=== PATIENT | female | born 1980 | race African-American/Black ===

== ENCOUNTER 2016-02-25 07:50 | Inpatient (IN) | payer MEDICAID ==
[~2016-02-25] VITALS: Ht 180.3 cm; Wt 143.2 kg
[2016-02-25] VITALS (8 sets, daily range): BP systolic 112–139; BP diastolic 53–85; PULSE 78–96; RESP 17–20; TEMP 97.4–98.2; O2SAT 97–100
[~2016-02-25 07:50] MED LIST: CORTIS10A EACH EAR
--- NOTE | 2016-02-25 08:15 | PD ---
HPI Chief Complaint: Abdominal Pain Time Seen by Provider: 08:07 Travel History International Travel<30 days: No Contact w/Intl Traveler<30days: No Traveled to known affect area: No History of Present Illness HPI 35yo F with PMH of gallstones presents to the ED with c/o RUQ abdominal pain since waking up at 6:30am today. Pain is sharp, radiates from epigastric region to right upper abdomen. Feels like pain she has had before. +Nausea. Denies any fever, chest pain, sob, vomiting, urinary complaints, vaginal bleeding or discharge. PFSH Past Medical History Asthma: Yes Blood Disorders: No Heart Rhythm Problems: No Cancer: No Cardiovascular Problems: No High Cholesterol: No Chemotherapy: No Chest Pain: No Congestive Heart Failure: No COPD: No Diabetes: No Diminished Hearing: No Endocrine: No Gastrointestinal Disorders: No Genitourinary: No Hepatitis: No Hiatal Hernia: No Hypertension: No Immune Disorder: No Implanted Vascular Access Dvce: No Kidney Stones: Yes Musculoskeletal: No Neurologic: No Psychiatric: No Reproductive: No Respiratory: Yes (ASTHMA) Radiation Therapy: No Sleep Apnea: No Thyroid Disease: No Tetanus Vaccination: > 5 Years Influenza Vaccination: No ?: Not LMP: 02/22/16 : 6 Para: 4 : 3 Tubal Ligation: Yes Past Surgical History AICD: No Section: Yes (X3) Genitourinary Surgery: Yes (KIDNEY STONE SURGERY LITHOTRYPSY) Gynecologic Surgery: Yes (C SECT X 3) Joint Replacement: No Pacemaker: No Other Surgery: Yes (KIDNEY STONES REMOVED IN MAY WITH LITHOTROPSY) Social History Alcohol Use: Yes (OCCASIONALLY) Tobacco Use: Yes (1/2 PPD) Substance Use: No Allergies-Medications (Allergen,Severity, Reaction): Coded Allergies: No Known Allergies (Verified , 02/25/16) Reported Meds & Prescriptions Reported Meds & Active Scripts Active No Active Prescriptions or Reported Medications Review of Systems Except as stated in HPI: all other systems reviewed are Neg Physical Exam Narrative GENERAL: 35yo F in mild distress. SKIN: Warm and dry. HEAD: Atraumatic. Normocephalic. EYES: Pupils equal and round. No scleral icterus. No injection or drainage. CARDIOVASCULAR: Regular rate and rhythm. No murmur appreciated. RESPIRATORY: No accessory muscle use. Clear to auscultation. Breath sounds equal bilaterally. GASTROINTESTINAL: Abdomen soft, +TTP epigastric and RUQ. +Rowe's sign. No rebound tenderness or guarding. BACK: No CVA tenderness bilaterally. MUSCULOSKELETAL: No obvious deformities. No clubbing. No cyanosis. No edema. NEUROLOGICAL: Awake and alert. No obvious cranial nerve deficits. Motor grossly within normal limits. Normal speech. PSYCHIATRIC: Appropriate mood and affect; insight and judgment normal. Data Data Last Documented VS Vital Signs Date Time Temp Pulse Resp B/P Pulse Ox O2 Delivery O2 Flow Rate FiO2 02/25/16 10:00 78 19 130/74 97 Room Air 02/25/16 07:52 98.2 Orders Basic Metabolic Panel (Bmp) (02/25/16 08:11) Complete Blood Count With Diff (02/25/16 08:11) Lipase (02/25/16 08:11) Prothrombin Time / Inr (Pt) (02/25/16 08:11) Act Partial Throm Time (Ptt) (02/25/16 08:11) Urinalysis - C+S If Indicated (02/25/16 08:11) Us Abdomen Gallbladder (02/25/16 ) Iv Access Insert/Monitor (02/25/16 08:11) Oximetry (02/25/16 08:11) Sodium Chloride 0.9% Flush (Ns Flush) (02/25/16 08:15) Electrocardiogram (02/25/16 08:11) Ed Urine Pregnancytest Poc (02/25/16 08:11) Hepatic Functional Panel (02/25/16 08:11) Ecg Monitoring (02/25/16 08:11) Ketorolac Inj (Toradol Inj) (02/25/16 09:00) Ondansetron Inj (Zofran Inj) (02/25/16 09:00) Morphine Inj (Morphine Inj) (02/25/16 09:45) Consult General Surgery (02/25/16 ) NPO (02/25/16 09:37) Consult Gastroenterology (02/25/16 ) Mri Mrcp W & W/O Contrast (02/25/16 ) Admit Order (Ed Use Only) (02/25/16 09:59) Labs Laboratory Tests Test 02/25/16 02/25/16 08:25 09:38 White Blood Count 6.8 TH/MM3 Red Blood Count 5.66 MIL/MM3 Hemoglobin 13.9 GM/DL Hematocrit 43.9 % Mean Corpuscular Volume 77.6 FL Mean Corpuscular Hemoglobin 24.6 PG Mean Corpuscular Hemoglobin 31.7 % Concent Red Cell Distribution Width 14.4 % Platelet Count 202 TH/MM3 Mean Platelet Volume 9.7 FL Neutrophils (%) (Auto) 50.4 % Lymphocytes (%) (Auto) 37.8 % Monocytes (%) (Auto) 9.4 % Eosinophils (%) (Auto) 1.8 % Basophils (%) (Auto) 0.6 % Neutrophils # (Auto) 3.4 TH/MM3 Lymphocytes # (Auto) 2.6 TH/MM3 Monocytes # (Auto) 0.6 TH/MM3 Eosinophils # (Auto) 0.1 TH/MM3 Basophils # (Auto) 0.0 TH/MM3 CBC Comment AUTO DIFF Differential Comment AUTO DIFF CONFIRMED Prothrombin Time 10.6 SEC Prothromb Time International 1.0 RATIO Ratio Activated Partial 27.3 SEC Thromboplast Time Sodium Level 140 MEQ/L Potassium Level 3.7 MEQ/L Chloride Level 107 MEQ/L Carbon Dioxide Level 23.6 MEQ/L Anion Gap 9 MEQ/L Blood Urea Nitrogen 10 MG/DL Creatinine 1.03 MG/DL Estimat Glomerular Filtration 73 ML/MIN Rate Random Glucose 128 MG/DL Calcium Level 8.6 MG/DL Total Bilirubin 1.6 MG/DL Direct Bilirubin 1.1 MG/DL Indirect Bilirubin 0.5 MG/DL Aspartate Amino Transf 883 U/L (AST/SGOT) Alanine Aminotransferase 527 U/L (ALT/SGPT) Alkaline Phosphatase 201 U/L Total Protein 7.1 GM/DL Albumin 3.5 GM/DL Lipase 191 U/L Urine Color DARK-YELLOW Urine Turbidity HAZY Urine pH 6.0 Urine Specific [place] 1.025 Urine Protein 30 mg/dL Urine Glucose (UA) NEG mg/dL Urine Ketones NEG mg/dL Urine Occult Blood MOD Urine Nitrite POS Urine Bilirubin SMALL Urine Urobilinogen 4.0 MG/DL Urine Leukocyte Esterase MOD Urine RBC 12 /hpf Urine WBC 39 /hpf Urine Squamous Epithelial 18 /hpf Cells Urine Bacteria MANY /hpf Urine Mucus MANY /lpf Microscopic Urinalysis Comment CULTURE INDICATED MDM Medical Decision Making Medical Screen Exam Complete: Yes Emergency Medical Condition: Yes Interpretation(s) EKG: NSR 79bpm. Normal axis. No ST segment elevation or depression. Differential Diagnosis Acute cholecystitis vs. acute pancreatitis vs. gastritis Narrative Course 35yo F with RUQ pain today. Pt had positive rowe's sign. Labs reviewed, no leukocytosis. Elevated LFTs: AST 883, ALT 527, Alk phos 201, direct bili 1.1. US gallbladder showed cholelithiasis with mild gallbladder wall thickening. No evidence of biliary obstruction. I discussed case with general surgeon Dr. Fernandez who requests that I admit to medicine and consult GI as well. He will be consulted. I discussed with GI physician Dr. Sinha who asked me to order MRCP. I discussed with hospitalist Dr. Pierson and he accepted the patient to his service. Pt initially given toradol but no relieve of pain so morphine was given. UA showed positive nitrite, ceftriaxone given. Diagnosis Primary Impression: Acute cholecystitis Admitting Information Admitting Physician Requests: Admit Scripts No Active Prescriptions or Reported Meds Mela Chapin DO Feb 25, 2016 08:14
[2016-02-25 08:41] LABS: AUTOMATED NEUTROPHIL # 3.4 TH/MM3 (1.8-7.7); BASOPHIL % 0.6 % (0.0-2.0); EOSINOPHIL # 0.1 TH/MM3 (0-0.4); EOSINOPHIL % 1.8 % (0.0-4.0); HEMATOCRIT 43.9 % (35.0-46.0); LYMPH % 37.8 % (9.0-44.0); LYMPHOCYTE # 2.6 TH/MM3 (1.0-4.8); MEAN CELL VOLUME 77.6 FL (80.0-100.0); MEAN CORPUSCULAR HEMOGLOBIN 24.6 PG (27.0-34.0); MEAN CORPUSCULAR HGB CONC 31.7 % (32.0-36.0); MONO % 9.4 % (0.0-8.0); NEUT % 50.4 % (16.0-70.0); PLATELET COUNT 202 TH/MM3 (150-450); RED BLOOD COUNT 5.66 MIL/MM3 (4.00-5.30); RED CELL DISTRIBUTION WIDTH 14.4 % (11.6-17.2); WHITE BLOOD COUNT 6.8 TH/MM3 (4.0-11.0)
[2016-02-25 08:42] LABS: HEMO FLAGS AUTO DIFF
[2016-02-25 08:49] LABS: APTT (PATIENT) 27.3 SEC (24.3-30.1); PROTHROMBIN TIME - PATIENT 10.6 SEC (9.8-11.6)
[2016-02-25] MEDS ORDERED: ONDANSETRON HCL 4 MG/2 ML VIAL IV PUSH ONE (09:00)
[2016-02-25] MEDS ORDERED: KETOROLAC TROMETHAMINE 30 MG/ML (IVP) VIAL IV PUSH ONE (09:00)
[2016-02-25] MEDS: SODIUM CHLORIDE 0.9% FLUSH 5 ML FLUSH IVF PRN ×2 (09:10→09:41)
[2016-02-25 09:12] LABS: BICARBONATE 23.6 MEQ/L (21.0-32.0); INDIRECT BILIRUBIN 0.5 MG/DL (0.0-0.8); POTASSIUM 3.7 MEQ/L (3.5-5.1); TOTAL BILIRUBIN ADULT 1.6 MG/DL (0.2-1.0)
--- NOTE | 2016-02-25 09:12 | RADRPT ---
EXAM DATE/TIME: 02/25/2016 08:29 [facility] COMPARISON: No previous studies available for comparison. INDICATIONS : Right upper quadrant pain. Nausea and vomitting. MEDICAL HISTORY : Renal calculi. Asthma. UTI. Right upper quadrant pain. SURGICAL HISTORY : Tubal ligation. section. Lithotripsy. ENCOUNTER: Initial ACUITY: 1 day PAIN SCORE: 6/10 LOCATION: Right upper quadrant MEASUREMENTS: LIVER: 22.8 cm length COMMON DUCT: 4 mm RIGHT KIDNEY: 9.1 x 4.2 x 5.3 cm FINDINGS: LIVER: Normal echotexture without focal lesion or ductal dilatation. COMMON DUCT: No intraluminal mass or stone visualized. GALLBLADDER: Cholelithiasisis present with numerous echogenic gallstones with posterior with shadowing. The gallb ladder wall is mildly prominent at 3 mm with no pericholecystic fluid and negative sonographic Rowe 's sign. PANCREAS: The visualized portions are within normal limits. RIGHT KIDNEY: No evidence of hydronephrosis, stone, or mass. CONCLUSION: 1. Cholelithiasis with mild gallbladder wall thickening. 2. No evidence of biliary obstruction. Sid Gill MD on February 25, 2016 at 9:08 Board Certified Radiologist. This report was verified electronically.
[2016-02-25 09:26] LABS: SCAN/DIFF AUTO DIFF CONFIRMED
[2016-02-25] MEDS ORDERED: MORPHINE SULFATE 8 MG/ML INJ IV PUSH ONE (09:45)
[2016-02-25] MEDS ORDERED: GLUCAGON 1 MG/ML VIAL OTHER PRN (10:00)
[2016-02-25] MEDS ORDERED: NALOXONE HCL 0.4 MG/ML AMP IV PRN (10:00)
[2016-02-25] MEDS ORDERED: ONDANSETRON HCL 4 MG/2 ML VIAL IVP PRN (10:00)
[2016-02-25] MEDS: DOCUSATE SODIUM 100 MG CAP PO SCH ×2 (10:00→20:26)
[2016-02-25] MEDS ORDERED: SENNOSIDES 8.6 MG TAB PO PRN (10:00)
[2016-02-25] MEDS ORDERED: MAGNESIUM HYDROXIDE SUSP 30 ML CUP PO PRN (10:00)
[2016-02-25] MEDS ORDERED: BISACODYL 10 MG SUPP PR PRN (10:00)
[2016-02-25] MEDS ORDERED: DEXTROSE 50% IN WATER 50 ML VIAL(D50) IV PUSH PRN (10:00)
[2016-02-25] MEDS ORDERED: SODIUM CHLORIDE 0.9% FLUSH 5 ML FLUSH FLUSH PRN (10:00)
[2016-02-25] MEDS ORDERED: MORPHINE SULFATE 4 MG/ML INJ IV PRN ×3 (10:00→13:00)
[2016-02-25 10:02] LABS: BACTERIA, URINE MANY /hpf; BLOOD, URINE MOD (NEG); GLUCOSE,URINE NEG (NEG); KETONE, URINE NEG (NEG); MUCUS URINE MANY /lpf (OCC); SQUAMOUS EPITHELIAL CELL URINE 18 /hpf (0-5); URINE COLOR DARK-YELLOW (YELLW/STRAW)
[2016-02-25 10:03] LABS: NITRITE,URINE POS (NEG)
[2016-02-25 10:05] LABS: COMMENT (UR) CULTURE INDICATED; CULTURE IF INDICATED CULTURE INDICATED
--- NOTE | 2016-02-25 10:30 | PD.CONS ---
HPI History of Present Illness This is a 35 year old female patient that came to the ER for evaluation of abdominal pain. She reports that for some time, she has had some epigastric discomfort every time she had any Mountain Dew and therefore she stopped drinking this. Last night for dinner, she had a fried fish sandwich with hot sauce and mustard. Afterwards, she felt fine. However, she does note that for the past week, she has been having pruritus, so she took a benadryl, took a shower, and went to bed. She woke up around 6 am with severe epigastric pain pressure-like pain that radiated to her RUQ and back. She had associated bloating and states this was aggravated by taking a deep breath. She had an episode of nausea and vomiting. She states it was here and the light was off so she did not see it. She has some chills but no fevers. She denies any diarrhea. She states she has a known hx of cholelithiasis and she has suspected that she had gallbladder issues because of the pain that she would have after meals and Mountain Dew at times. She reports that she has been taking apple cider vinegar for this because she read that this could help with gallbladder issues. (Jannette John) PFSH Past Medical History Cholelithiasis Nephrolithiasis Obesity Past Surgical History Lithotripsy for kidney stones. (Jannette John) Coded Allergies: No Known Allergies (Verified , 02/25/16) Medications Allergies Coded Allergies Type Severity Reaction Last Updated Verified No Known Allergies 02/25/16 Yes Active Scripts Medications Dose Route/Sig Days Date Category No Active Prescriptions or Reported Medications Rx Family History Daughter has a hx of gallbladder issues, had cholecystectomy Social History 1/2 ppd x 24 years (Jannette John) Review of Systems Constitutional: COMPLAINS OF: Chills, DENIES: Fatigue, Fever, Weight loss Respiratory: DENIES: Cough Cardiovascular: DENIES: Chest pain Gastrointestinal: COMPLAINS OF: Abdominal pain, Nausea, Vomiting, Swelling of Abdomen, DENIES: Black stools, Bloody stools, Constipation, Diarrhea, Hematemesis Musculoskeletal: COMPLAINS OF: Back pain Integumentary: COMPLAINS OF: Pruritus, DENIES: Jaundice Hematologic/lymphatic: DENIES: Bruising Neurologic: DENIES: Headache Psychiatric: DENIES: Confusion (Jannette John) GI Exam Vitals I&O Vital Signs Date Time Temp Pulse Resp B/P Pulse Ox O2 Delivery O2 Flow Rate FiO2 02/25/16 10:00 78 19 130/74 97 Room Air 02/25/16 08:42 98 Room Air 02/25/16 07:52 98.2 96 18 137/85 97 Imaging Last Impressions Gall Bladder Ultrasound 02/25/16 0000 Signed Impressions: Service Date/Time: February 08:29 - CONCLUSION: 1. Cholelithiasis with mild gallbladder wall thickening. 2. No evidence of biliary obstruction. Sid Gill MD Laboratory Test 02/25/16 02/25/16 08:25 09:38 White Blood Count 6.8 TH/MM3 Red Blood Count 5.66 MIL/MM3 Hemoglobin 13.9 GM/DL Hematocrit 43.9 % Mean Corpuscular Volume 77.6 FL Mean Corpuscular Hemoglobin 24.6 PG Mean Corpuscular Hemoglobin 31.7 % Concent Red Cell Distribution Width 14.4 % Platelet Count 202 TH/MM3 Mean Platelet Volume 9.7 FL Neutrophils (%) (Auto) 50.4 % Lymphocytes (%) (Auto) 37.8 % Monocytes (%) (Auto) 9.4 % Eosinophils (%) (Auto) 1.8 % Basophils (%) (Auto) 0.6 % Neutrophils # (Auto) 3.4 TH/MM3 Lymphocytes # (Auto) 2.6 TH/MM3 Monocytes # (Auto) 0.6 TH/MM3 Eosinophils # (Auto) 0.1 TH/MM3 Basophils # (Auto) 0.0 TH/MM3 CBC Comment AUTO DIFF Differential Comment AUTO DIFF CONFIRMED Prothrombin Time 10.6 SEC Prothromb Time International 1.0 RATIO Ratio Activated Partial 27.3 SEC Thromboplast Time Sodium Level 140 MEQ/L Potassium Level 3.7 MEQ/L Chloride Level 107 MEQ/L Carbon Dioxide Level 23.6 MEQ/L Anion Gap 9 MEQ/L Blood Urea Nitrogen 10 MG/DL Creatinine 1.03 MG/DL Estimat Glomerular Filtration 73 ML/MIN Rate Random Glucose 128 MG/DL Calcium Level 8.6 MG/DL Total Bilirubin 1.6 MG/DL Direct Bilirubin 1.1 MG/DL Indirect Bilirubin 0.5 MG/DL Aspartate Amino Transf 883 U/L (AST/SGOT) Alanine Aminotransferase 527 U/L (ALT/SGPT) Alkaline Phosphatase 201 U/L Total Protein 7.1 GM/DL Albumin 3.5 GM/DL Lipase 191 U/L Urine Color DARK-YELLOW Urine Turbidity HAZY Urine pH 6.0 Urine Specific [place] 1.025 Urine Protein 30 mg/dL Urine Glucose (UA) NEG mg/dL Urine Ketones NEG mg/dL Urine Occult Blood MOD Urine Nitrite POS Urine Bilirubin SMALL Urine Urobilinogen 4.0 MG/DL Urine Leukocyte Esterase MOD Urine RBC 12 /hpf Urine WBC 39 /hpf Urine Squamous Epithelial 18 /hpf Cells Urine Bacteria MANY /hpf Urine Mucus MANY /lpf Microscopic Urinalysis Comment CULTURE INDICATED Date/Time Procedure Status Source Growth 02/25/16 09:38 Urine Culture Received Urine Clean Catch Pending Physical Examination HEENT: Normocephalic; atraumatic; no jaundice. Throat is clear. NECK: Neck is supple, no JVD, no lymphadenopathy. CHEST: CTA CARDIAC: RRR. ABDOMEN: Soft, nondistended, RUQ/Epigastric tenderness; no hepatosplenomegaly; bowel sounds are present in all four quadrants. EXTREMITIES: No clubbing, cyanosis, or edema. SKIN: Normal; no rash; no jaundice. CIRCULATION TENDER: No focal deficits; alert and oriented times three. (Jannette John) Assessment and Plan Plan ASSESSMENT: - Abdominal pain, nausea/vomiting with cholelithiasis and mild wall thickening of gallbladder and elevated LFTs. Gall Bladder Ultrasound (02/25/16)---> 1. Cholelithiasis with mild gallbladder wall thickening. 2. No evidence of biliary obstruction. Pt has known hx of cholelithiasis and has been having intermittent pain after meals/Mountain Dew. She has been taking Apple Cider Vinegar for this. She woke up with severe epigastric pain radiating to RUQ and back with bloating and n/v after eating a fried fish sandwich last night. WBC okay. T. Bili 1.6, Direct 1.1, Indirect 0.5, AST 883, ALT 527 , Alk Phosph 201. Will get MRCP to r/o choledocholithiasis. GS consulted. PPI. NPO - Cholecysitis/Cholelithiasis. US with cholelithiasis, mild gb wall thickening. GS consulted. - Elevated LFTs. Will get MRCP to rule out choledocholithiasis. Also will check hepatitis profile. PLAN: - NPO - Stat MRCP - PPI - CBC, CMP in am - Hepatitis profile - GS evaluation - Supportive care - Further recommendations to follow based on results of above - PT seen and examined by Dr. Montanez and myself and this note is written on his behalf (Jannette John) Physician Comments Seen and examined with Ms. Dora CHIN, MRCP -ve for stones or biliary dilation. Proceed with cholecystectomy with IOC if possible. diet as tolerated. Will sign off, reconsult as needed. Thank uHammad (Rashad Montanez MD) Jannette John Feb 25, 2016 10:30 Rashad Montanez MD Feb 25, 2016 16:32
[2016-02-25] MEDS: SODIUM CHLOR 0.9% 1000 ML INJ 1,000 ML IV SCH ×2 (11:18→20:26)
[2016-02-25] MEDS: PANTOPRAZOLE SODIUM 40 MG VIAL IV PUSH SCH (11:18)
[2016-02-25] MEDS ORDERED: cefTRIAXone INJ 1,000 MG in SODIUM CHLORIDE 0.9% INJ 100 ML IV ONE (11:30)
[2016-02-25] MEDS: CALAMINE/PRAMOXINE LOTION 180 ML BTL TOPICAL SCH ×2 (11:45→20:26)
--- NOTE | 2016-02-25 11:47 | HHI.HP ---
[facility] Service [facility] Primary Care Physician Sergo Ely Admission Diagnosis Cholecystitis Diagnoses: Chief Complaint: abdominal pain Travel History International Travel<30 Days: No Contact w/Intl Traveler <30 Da: No Traveled to Known Affected Are: No History of Present Illness 35-year-old female with history of cholelithiasis, nephrolithiasis, asthma, presents with acute onset of abdominal pain earlier today 02/25/16. Patient reports yesterday she was in her normal state of health, had fried fish for dinner last night, however upon awakening this morning she had severe 8/10 epigastric pains with radiation to the RUQ, described as feeling full, bloated, and pressure; worse with deep breathing, associated with nausea, no vomiting. No fever/chills. No changes in stools. She states she has been told she has gallstones in the past, and has had the same intermittent pains however never this intense. The patient also reports intense pruritus over the past week, has been taking Benadryl with no relief. She denies any other medical complaints at this time. Review of Systems Constitutional: DENIES: Diaphoretic episodes, Fever, Chills, Dizziness, Change in appetite Endocrine: DENIES: Polydipsia, Polyuria, Polyphagia Eyes: DENIES: Blurred vision, Vision loss Ears, nose, mouth, throat: DENIES: Vertigo, Throat pain, Ear Pain, Running Nose , Odynophagia Respiratory: DENIES: Cough, Shortness of breath Cardiovascular: DENIES: Chest pain, Palpitations, Syncope, Dyspnea on Exertion , Lower Extremity Edema Gastrointestinal: COMPLAINS OF: Abdominal pain, Nausea, DENIES: Constipation, Diarrhea, Vomiting Genitourinary: DENIES: Urinary frequency, Urgency, Dysuria Musculoskeletal: DENIES: Back pain, Neck pain Integumentary: COMPLAINS OF: Pruritus, DENIES: Abnormal pigmentation, Rash Hematologic/lymphatic: DENIES: Bruising, Lymphadenopathy Immunologic/allergic: DENIES: Eczema, Urticaria Neurologic: DENIES: Abnormal gait, Headache, Localized weakness, Paresthesias Psychiatric: DENIES: Anxiety, Depression Past Family Social History Past Medical History Cholelithiasis Nephrolithiasis Obesity Asthma Past Surgical History Lithotripsy for kidney stones Reported Medications Recently taking benadryl prn, otherwise no other medications Allergies: Coded Allergies: No Known Allergies (Verified , 02/25/16) Active Ordered Medications Current Medications Medications (Trade) Dose Ordered Sig/Ig[place] Route Start Time Stop Time Status Last Admin (NS 1000 ml Inj) 1,000 ml @ 100 mls/hr Q10H IV 02/25/16 11:00 02/25/16 11:18 (NS Flush) 2 ml UNSCH PRN FLUSH 02/25/16 10:00 (NS Flush) 2 ml BID FLUSH 02/25/16 21:00 (Zofran Inj) 4 mg Q6H PRN IVP 02/25/16 10:00 (Dulcolax Supp) 10 mg DAILY PRN WI 02/25/16 10:00 (Colace) 100 mg Q12H PO 02/25/16 10:00 (Milk Of Magnesia Liq) 30 ml Q12H PRN PO 02/25/16 10:00 (Senokot) 17.2 mg Q12H PRN PO 02/25/16 10:00 (Morphine Inj) 2 mg Q3H PRN IV 02/25/16 13:00 (Morphine Inj) 4 mg Q3H PRN IV 02/25/16 13:00 (Morphine Inj) 4 mg Q3H PRN IV 02/25/16 10:00 (Dilaudid) 1 mg Q4H PRN PO 02/25/16 13:00 (Dilaudid) 2 mg Q4H PRN PO 02/25/16 13:00 (Narcan Inj) 0.4 mg UNSCH PRN IV 02/25/16 10:00 (Protonix Inj) 40 mg Q24H IV PUSH 02/25/16 12:00 02/25/16 11:18 (D50w (Vial) Inj) 25 ml UNSCH PRN IV PUSH 02/25/16 10:00 (Glucagon Inj) 1 mg UNSCH PRN OTHER 02/25/16 10:00 (Atarax) 25 mg Q6H PRN PO 02/25/16 11:45 (Benadryl Inj) 25 mg Q6H PRN IV PUSH 02/25/16 11:45 (Caladryl Lotion) 1 applic Q12HR TOPICAL 02/25/16 11:45 Family History Daughter has a hx of gallbladder issues, had cholecystectomy Mother with hypertension Social History Smokes tobacco - 1/2 ppd x 24 years Occasional alcohol use Denies illicit drug use Physical Exam Vital Signs Vital Signs Date Time Temp Pulse Resp B/P Pulse Ox O2 Delivery O2 Flow Rate FiO2 02/25/16 11:20 85 20 112/53 100 Room Air 02/25/16 10:00 78 19 130/74 97 Room Air 02/25/16 08:42 98 Room Air 02/25/16 07:52 98.2 96 18 137/85 97 Physical Exam GENERAL: Well-nourished, well-developed pleasant middle aged AA female patient in NAD. SKIN: Warm and dry. Persistently itching, with dry skin, no obvious rash. HEAD: Normocephalic. Atraumatic. EYES: Pupils equal and round. Slightly dirty sclera, however no significant icterus. ENT: No nasal bleeding or discharge. Mucous membranes pink and moist. NECK: Supple. Trachea midline. CARDIOVASCULAR: Regular rate and rhythm. S1, S2 noted. No murmur appreciated. RESPIRATORY: No accessory muscle use. Clear to auscultation. Breath sounds equal bilaterally. GASTROINTESTINAL: Abdomen soft, nondistended; epigastric and RUQ TTP. Normoactive bowel sounds x4. MUSCULOSKELETAL: No obvious deformities. Extremities without clubbing, cyanosis , or edema. NEUROLOGICAL: Awake and alert. No obvious cranial nerve deficits. Motor grossly within normal limits. Normal speech. PSYCHIATRIC: Appropriate mood and affect; insight and judgment normal. Laboratory Laboratory Tests Test 02/25/16 02/25/16 08:25 09:38 White Blood Count 6.8 Red Blood Count 5.66 Hemoglobin 13.9 Hematocrit 43.9 Mean Corpuscular Volume 77.6 Mean Corpuscular Hemoglobin 24.6 Mean Corpuscular Hemoglobin 31.7 Concent Red Cell Distribution Width 14.4 Platelet Count 202 Mean Platelet Volume 9.7 Neutrophils (%) (Auto) 50.4 Lymphocytes (%) (Auto) 37.8 Monocytes (%) (Auto) 9.4 Eosinophils (%) (Auto) 1.8 Basophils (%) (Auto) 0.6 Neutrophils # (Auto) 3.4 Lymphocytes # (Auto) 2.6 Monocytes # (Auto) 0.6 Eosinophils # (Auto) 0.1 Basophils # (Auto) 0.0 CBC Comment AUTO DIFF Differential Comment AUTO DIFF CONFIRMED Prothrombin Time 10.6 Prothromb Time International 1.0 Ratio Activated Partial 27.3 Thromboplast Time Sodium Level 140 Potassium Level 3.7 Chloride Level 107 Carbon Dioxide Level 23.6 Anion Gap 9 Blood Urea Nitrogen 10 Creatinine 1.03 Estimat Glomerular Filtration 73 Rate Random Glucose 128 Calcium Level 8.6 Total Bilirubin 1.6 Direct Bilirubin 1.1 Indirect Bilirubin 0.5 Aspartate Amino Transf 883 (AST/SGOT) Alanine Aminotransferase 527 (ALT/SGPT) Alkaline Phosphatase 201 Total Protein 7.1 Albumin 3.5 Lipase 191 Urine Color DARK-YELLOW Urine Turbidity HAZY Urine pH 6.0 Urine Specific [place] 1.025 Urine Protein 30 Urine Glucose (UA) NEG Urine Ketones NEG Urine Occult Blood MOD Urine Nitrite POS Urine Bilirubin SMALL Urine Urobilinogen 4.0 Urine Leukocyte Esterase MOD Urine RBC 12 Urine WBC 39 Urine Squamous Epithelial 18 Cells Urine Bacteria MANY Urine Mucus MANY Microscopic Urinalysis Comment CULTURE INDICATED Date/Time Procedure Status Source Growth 02/25/16 09:38 Urine Culture Received Urine Clean Catch Pending Result Diagram: 02/25/16 0825 02/25/16 0825 Imaging EKG tracing interpreted by me with sinus rhythm no acute ST-T changes Last Impressions Gall Bladder Ultrasound 02/25/16 0000 Signed Impressions: Service Date/Time: February 08:29 - CONCLUSION: 1. Cholelithiasis with mild gallbladder wall thickening. 2. No evidence of biliary obstruction. Sid Gill MD Assessment and Plan Problem List: (1) Acute cholecystitis ICD Code: K81.0 Status: Acute Assessment and Plan 35-year-old female with history of cholelithiasis, nephrolithiasis, asthma, presents with acute onset of severe 8/10 epigastric pains with radiation to the RUQ, described as feeling full, bloated, and pressure; started earlier today . Abdominal Pain with Cholelithiasis, suspected acute cholecystitis: GB U/S showed cholelithiasis with mild GB wall thickening. T. Bili 1.6, Direct 1.1, Indirect 0.5, AST 883, ALT 527, Alk Phosph 201. Consulted GI and general surgery. Plan for stat MRCP to r/o choledocholithiasis. Continue PPI. Keep NPO Transaminitis: likely secondary to above. However check hepatitis profile. Monitor LFTs. Pruritus: no significant rash, likely secondary to above. Give Atarax prn, IV benadryl prn, and Calamine lotion q12h. Asthma: chronic, does not appear to be in exacerbation. Written by Lila Campos, acting as scribe for Dr. Pierson on 02/25/16 at 11: 45. The documentation accurately reflects the work performed [id number] by me on at 1145 Code Status Full Code Discussed Condition With Patient, patient's daughter at bedside, Dr. Chapin Physician Certification 2 Midnight Certification Type: Admission for Inpatient Services Order for Inpatient Services The services are ordered in accordance with Medicare regulations or non- Medicare payer requirements, as applicable. In the case of services not specified as inpatient-only, they are appropriately provided as inpatient services in accordance with the 2-midnight benchmark. Estimated LOS (days): 2 days is the estimated time the patient will need to remain in the hospital, assuming treatment plan goals are met and no additional complications. Post-Hospital Plan: Home Lila Campos PA-C Feb 25, 2016 11:47 Aguila Pierson MD Feb 25, 2016 15:35
[2016-02-25] MEDS ORDERED: HYDROmorphone HCL 2 MG TAB PO PRN ×2 (13:00)
[2016-02-25] MEDS: hydrOXYzine HCL 25 MG TAB PO PRN ×2 (14:00→20:26)
--- NOTE | 2016-02-25 14:16 | RADRPT ---
EXAM DATE/TIME: 02/25/2016 12:56 [place] COMPARISON: No previous studies available for comparison. INDICATIONS : Abdominal pain. MEDICAL HISTORY : None. SURGICAL HISTORY : section. lithotripsy ENCOUNTER: Initial ACUITY: 1 day PAIN SCORE: 5/10 LOCATION: upper quadrant abdomen TECHNIQUE: Multiplanar, multisequence magnetic resonance imaging of the abdomen was performed. High-resolution 3D dataset was utilized to reconstruct maximum-intensity projection (MIP) images. FINDINGS: The liver and spleen are normal in size and no focal defects are identified. There are multiple stone s within the gallbladder without wall thickening or pericholecystic fluid the largest measuring 8 mm. The common duct and pancreatic duct appear normal. The pancreas demonstrates no evidence of mass and there is no dilatation of the pancreatic duct. The adrenal glands and kidneys appear normal bilatera lly. No hydronephrosis or mass lesions are identified. CONCLUSION: 1. Numerous gallstones. No ductal dilatation or common duct stones are identified. Cesar Andre MD on February 25, 2016 at 14:13 Board Certified Radiologist. This report was verified electronically.
[2016-02-25] MEDS: diphenhydrAMINE HCL 50 MG/ML VIAL IV PUSH PRN ×2 (15:15→22:11)
[2016-02-25] MEDS ORDERED: ceFAZolin 2 GM PREMIX 50 ML IV SCH (15:45)
--- NOTE | 2016-02-25 16:33 | MB ---
cc: MARCELA FERNANDEZ DATE OF CONSULTATION: 02/25/2016 REASON FOR CONSULTATION: Cholelithiasis, elevated liver enzymes. HISTORY This is a pleasant 35-year-old female who is known to have problems with cholelithiasis. Recently her daughter underwent a cholecystectomy appears she was not having problems that she knew she had gallstones. She then began experiencing right upper quadrant pain, midepigastric pain, radiating to her back that became unrelenting, she came to emergency room a ultrasound was done which showed gallstones and she had an elevated liver enzymes as well. He MRCP was done which did not show any choledocholithiasis surgery was consulted for surgical evaluation opinion. PAST HISTORY She wears glasses. No neurologic, cardiovascular problems. She has had asthma in the past. GI: She has this abdominal pain, nausea, back pain right upper quadrant pain associated with biliary colic type symptoms. She said three C-sections. The tubal ligation as well As problem with kidney stones where a right kidney stone needed to undergo lithotripsy back to 2014. SOCIAL HISTORY: Occasionally has alcohol and smokes a half-pack a day. ALLERGIES They are not known to be allergic to anything. MEDICATIONS: Does not take any routine medications. PHYSICAL EXAMINATION: IN GENERAL: Physical exam she is alert, is able set up. NECK: Neck is supple. CHEST: Clear. HEART: Regular rate. ABDOMEN: Obese, soft, surgical scars from a . She has mild soreness to right upper quadrant. EXTREMITIES: Moves all extremities no clubbing, cyanosis or edema. NEUROLOGIC: She is alert, oriented, minimal distress. She is somewhat frustrated with the medical condition. LABORATORY DATA She had a white count of 6, H&H of 13 and 43. Chemistry showed AST 800, ALT of 527, alk phos of 201, creatinine 1.03. Coags normal. Urinalysis is cultures being done. Serology for hepatitis all negative. IMAGING STUDIES Ultrasound of the gallbladder shows cholelithiasis with mild gallbladder wall thickening. MRCP shows gallstones with no choledocholithiasis. Urine cultures pending. A consultation from GI was reviewed as well, and admission notes reviewed. ASSESSMENT: A 35-year-old female with known cholelithiasis with now acute cholecystitis. I will see if I can find some time in the operating room tomorrow at a reasonable time. This was explained to the patient, she appears to understand. Her daughter had undergone laparoscopic cholecystectomy done by my associate Dr. Lovell and so she is well aware of the surgical recovery, the surgery, etc. Marcela Fernandez MD JDORETHA/kelly /3:31 PM /4:25 PM
[2016-02-25] MEDS: SODIUM CHLORIDE 0.9% FLUSH 5 ML FLUSH FLUSH SCH (20:26)
--- NOTE | 2016-02-25 20:50 | EKG ---
Date Performed: 02/25/2016 Time Performed: 09:22:28 PTAGE: 35 years EKG: Sinus rhythm NORMAL ECG NO PREVIOUS TRACING DOCTOR: Yovanny Kirkland Interpretating Date/Time 02/25/2016 20:49:45
[2016-02-25] MEDS ORDERED: LACTATED RINGER'S 1000 ML IV SCH (22:30)
[2016-02-26] VITALS (7 sets, daily range): BP systolic 101–147; BP diastolic 52–82; PULSE 72–84; RESP 16–20; TEMP 96.1–98.7; O2SAT 95–100
[2016-02-26] MEDS: hydrOXYzine HCL 25 MG TAB PO PRN (05:17)
[2016-02-26] MEDS: SODIUM CHLOR 0.9% 1000 ML INJ 1,000 ML IV SCH ×2 (05:18→17:00)
[2016-02-26 05:48] LABS: AUTOMATED NEUTROPHIL # 3.4 TH/MM3 (1.8-7.7); BASOPHIL % 0.4 % (0.0-2.0); EOSINOPHIL # 0.2 TH/MM3 (0-0.4); EOSINOPHIL % 2.9 % (0.0-4.0); HEMATOCRIT 39.9 % (35.0-46.0); LYMPH % 33.3 % (9.0-44.0); LYMPHOCYTE # 2.1 TH/MM3 (1.0-4.8); MEAN CELL VOLUME 77.3 FL (80.0-100.0); MEAN CORPUSCULAR HEMOGLOBIN 24.7 PG (27.0-34.0); MEAN CORPUSCULAR HGB CONC 31.9 % (32.0-36.0); MONO % 8.6 % (0.0-8.0); NEUT % 54.8 % (16.0-70.0); PLATELET COUNT 180 TH/MM3 (150-450); RED BLOOD COUNT 5.16 MIL/MM3 (4.00-5.30); RED CELL DISTRIBUTION WIDTH 14.6 % (11.6-17.2); WHITE BLOOD COUNT 6.2 TH/MM3 (4.0-11.0)
[2016-02-26 05:53] LABS: HEMO FLAGS AUTO DIFF
[2016-02-26 05:58] LABS: ALKALINE PHOSPHATASE 197 U/L (45-117); ALT (GPT) 480 U/L (10-53); ANION GAP 7 MEQ/L (5-15); AST (GOT) 418 U/L (15-37); BICARBONATE 24.5 MEQ/L (21.0-32.0); BLOOD UREA NITROGEN 6 MG/DL (7-18); CHLORIDE 112 MEQ/L (98-107); GLOMERULAR FILTRATION RATE 75 ML/MIN (>89); POTASSIUM 3.9 MEQ/L (3.5-5.1); SODIUM (NA) 143 MEQ/L (136-145)
[2016-02-26] MEDS ORDERED: LEVOFLOXACIN 500 MG PREMIX INJ 100 ML IV SCH (06:30)
[2016-02-26] MEDS: CALAMINE/PRAMOXINE LOTION 180 ML BTL TOPICAL SCH (07:40)
[2016-02-26] MEDS: SODIUM CHLORIDE 0.9% FLUSH 5 ML FLUSH FLUSH SCH (07:40)
[2016-02-26] MEDS: DOCUSATE SODIUM 100 MG CAP PO SCH (07:41)
[2016-02-26 09:10] LABS: SCAN/DIFF AUTO DIFF CONFIRMED
[2016-02-26] MEDS ORDERED: PHENYLEPH/NS 1000 MCG/10 ML SYR IV ONE (10:03)
[2016-02-26] MEDS ORDERED: NEOSTIGMINE 3 MG/3 ML SYR IV ONE (10:03)
[2016-02-26] MEDS ORDERED: PROPOFOL 200 MG/20 ML AMP IV ONE (10:03)
[2016-02-26] MEDS ORDERED: ONDANSETRON HCL 4 MG/2 ML VIAL IV PUSH ONE (10:04)
[2016-02-26] MEDS ORDERED: NORMOSOL R INJ 1,000 ML IV ONE (10:04)
[2016-02-26] MEDS: PANTOPRAZOLE SODIUM 40 MG VIAL IV PUSH SCH (12:00)
--- NOTE | 2016-02-26 12:14 | HHI.PR ---
Subjective Remarks Follow-up acute cholecystitis and UTI. Patient denies any abdominal pain and UTI symptoms. She wants to go home after operation. Discussed with RN Objective Vitals Vital Signs Date Time Temp Pulse Resp B/P Pulse Ox O2 Delivery O2 Flow Rate FiO2 02/26/16 11:42 98.7 72 19 126/76 98 02/26/16 08:00 98.0 82 20 131/78 95 02/26/16 04:00 97.4 80 17 122/60 99 02/26/16 01:44 100 02/26/16 00:00 96.1 84 17 116/53 99 02/25/16 20:00 97.4 85 17 131/63 99 02/25/16 16:31 97.8 90 20 120/79 99 02/25/16 15:46 99 21 02/25/16 14:00 88 18 139/71 98 Room Air I/O 02/25/16 02/25/16 02/25/16 02/26/16 02/26/16 02/26/16 07:00 15:00 23:00 07:00 15:00 23:00 Intake Total 978 ml 738 ml 0 ml Output Total 250 ml 600 ml Balance 728 ml 138 ml 0 ml Intake Oral 240 ml 0 ml 0 ml IV Total 738 ml 738 ml Output Urine Total 250 ml 600 ml Result Diagram: 02/26/16 0438 02/26/16 0430 Imaging Last Impressions Gall Bladder Ultrasound 02/25/16 0000 Signed Impressions: Service Date/Time: February 08:29 - CONCLUSION: 1. Cholelithiasis with mild gallbladder wall thickening. 2. No evidence of biliary obstruction. Sid Gill MD Cholangiopancreatography MRI 02/25/16 0000 Signed Impressions: Service Date/Time: February 12:56 - CONCLUSION: 1. Numerous gallstones. No ductal dilatation or common duct stones are identified. Cesar Andre MD Objective Remarks GENERAL: Well-nourished, well-developed pleasant middle aged AA female patient in NAD. SKIN: Warm and dry. HEAD: Normocephalic. Atraumatic. EYES: Pupils equal and round. Slightly dirty sclera, however no significant icterus. ENT: No nasal bleeding or discharge. Mucous membranes pink and moist. NECK: Supple. Trachea midline. CARDIOVASCULAR: Regular rate and rhythm. S1, S2 noted. No murmur appreciated. RESPIRATORY: No accessory muscle use. Clear to auscultation. Breath sounds equal bilaterally. GASTROINTESTINAL: Abdomen soft, nondistended; epigastric and RUQ TTP. Normoactive bowel sounds x4. MUSCULOSKELETAL: No obvious deformities. Extremities without clubbing, cyanosis , or edema. No CVA tenderness NEUROLOGICAL: Awake and alert. No obvious cranial nerve deficits. Motor grossly within normal limits. Normal speech. PSYCHIATRIC: Appropriate mood and affect; insight and judgment normal. Procedures For cholecystectomy A/P Problem List: (1) Acute cholecystitis ICD Code: K81.0 Status: Acute Assessment and Plan 35-year-old female with history of cholelithiasis, nephrolithiasis, asthma, presents with acute onset of severe 8/10 epigastric pains with radiation to the RUQ, described as feeling full, bloated, and pressure; started earlier today . Abdominal Pain with Cholelithiasis, suspected acute cholecystitis: GB U/S showed cholelithiasis with mild GB wall thickening. T. Bili 1.6, Direct 1.1, Indirect 0.5, AST 883, ALT 527, Alk Phosph 201. Consulted GI and general surgery. Plan for stat MRCP to r/o choledocholithiasis. Continue PPI. Keep NPO -For cholecystectomy with possible IOC Transaminitis: likely secondary to above. However check hepatitis profile. Monitor LFTs. -Negative hepatitis profile. We'll continue to monitor Pruritus: no significant rash, likely secondary to above. Give Atarax prn, IV benadryl prn, and Calamine lotion q12h. Asthma: chronic, does not appear to be in exacerbation. Gram-negative kristy UTI. Start Levaquin and monitor culture Discharge Planning Discharge patient to home Condition on discharge: Improved Regular Diet as tolerated Ad Joana activity no driving Rx written: Levaquin and Dilaudid Follow-up with primary care physician in one week with repeat CMP 02/29/16 Aguila Pierson MD Feb 26, 2016 12:14
[2016-02-26] MEDS ORDERED: LEVO250T3 PO (12:17)
[2016-02-26] MEDS ORDERED: DILA2TAB2 PO (12:17)
--- NOTE | 2016-02-26 14:00 | HHI.DCPOC ---
Discharge Care Plan Diagnosis: (1) Acute cholecystitis Your Health Problems Are: Difficulty with ADL Exercise Tolerance Goals to Promote Your Health * To prevent worsening of your condition and complications * To maintain your health at the optimal level Directions to Meet Your Goals Take your medications as prescribed Follow your dietary instruction Follow activity as directed Keep your appointments as scheduled Take your immunizations and boosters as scheduled If your symptoms worsen call your PCP, if no PCP go to Urgent Care Center or Emergency Room Smoking is Dangerous to Your Health. Avoid second hand smoke Call the 24-hour hour crisis hotline for domestic abuse at Aguila Pierson MD Feb 26, 2016 14:00
[2016-02-26] MEDS ORDERED: BUPIVACAINE/EPINEPHRINE 0.25% PF 30 ML VIAL ONE (15:49)
[2016-02-26] MEDS ORDERED: MIDAZOLAM HCL 2 MG/2 ML VIAL ONE (16:29)
[2016-02-26] MEDS ORDERED: fentaNYL CITRATE 250 MCG/5 ML AMP ONE (16:29)
[2016-02-26] MEDS ORDERED: DICLOFENAC SODIUM 37.5 MG/ML VIAL IV PUSH ONE (16:29)
--- NOTE | 2016-02-26 17:37 | HHI.PR ---
cc: Karson Fernandez MD Immediate Post Op Note Procedure Date: Feb 26, 2016 Pre Op Diagnosis: (1) Acute cholecystitis Post Op Diagnosis: (1) Acute cholecystitis Surgeon: Karson Fernandez Ore Mixer(s): Please refer to OR record Procedure: Laparoscopic cholecystectomy Findings: Inflamed edematous gallbladder Complications: None Specimen(s) removed: Stones and gallbladder Anesthesia: General Drains: None IVF Patient to: PACU Patient Condition: Good Implant/Devices: SEE IMPLANT LOG (if applicable) Date/Time of Procedure: SEE SURGICAL CARE RECORD Karson Fernandez MD Feb 26, 2016 17:37
[2016-02-26] MEDS ORDERED: DO NOT ADM ANY ANTICOAGULANT DRUGS XX PRN (18:00)
[2016-02-26] MEDS ORDERED: *morphine SULFATE 8 MG/ML PERIprocedure ONLY ONE (18:05)
[2016-03-01] MEDS ORDERED: CEFA250 PO (07:36)
--- NOTE | 2016-03-02 09:43 | MP ---
cc: MARCELA FERNANDEZ DATE OF SURGERY: 02/26/2016 PREOPERATIVE DIAGNOSIS Cholelithiasis, cholecystitis. POSTOPERATIVE DIAGNOSIS Cholelithiasis, cholecystitis. PROCEDURE Laparoscopic cholecystectomy. ANESTHESIA General. SURGEON Dr. Fernandez. INDICATION This is a pleasant 35-year-old female who came into the emergency room complaining of some abdominal pain. She was found to have cholelithiasis. She had a slightly elevated liver enzyme. She had an MRCP which did not show any choledocholithiasis. She had previous problems with kidney stones as well. Her enzymes went down a little bit from yesterday. Plans were made for laparoscopic cholecystectomy. Of note, her hepatitis profile was negative as well. PROCEDURE The patient was taken to the operating room and placed in the supine position. After anesthesia her abdomen was prepped with Betadine. We make an incision just below the umbilicus. Veress needle was inserted. The saline load test was performed, the abdomen was insufflated to 15 mmHg. The trocar was introduced. Camera was introduced. Two other working ports were placed 5 mm below the xiphoid __5 mm in between the two previously placed ports in the midline. The gallbladder __ grasped superiorly and laterally, it is slightly edematous. We are able to dissect with the hook dissector, identifying the cystic duct, cystic artery which were both doubly ligated and transected. The gallbladder was then teased off the gallbladder bed and pulled out through the umbilical incision. Then we irrigate, hemostasis is assured. No other gross abnormalities seen. The gallbladder bed was hemostatic without biliary leakage. The liver is smooth. The peritoneal surfaces are smooth. Trocars are removed after the CO2 was removed and the irrigating solution. We then close the umbilical port site with 0 Vicryl interrupted suture. Skin is closed with a 4-0 Vicryl. Steri-Strips were applied. Sterile bandage was applied. The patient tolerated the procedure well and had no immediate postop complications. Marcela Fernandez MD JDB/TLL /5:50 PM /9:23 AM
== END 2016-02-26 20:46 | disposition home or self-care (01) | DRG 418 ==
LOC: NEPC 07:50 → NEDA 10:00 → N07B 16:18
PROVIDERS: ADMIT Internal Medicine; ATTEND Internal Medicine
PROC: 0FT44ZZ Resection of Gallbladder, Percutaneous Endoscopic Approach (ICD-10-PCS; principal; 2016-02-26 16:31)
DX: K80.10 Calculus of gallbladder with chronic cholecystitis without obstruction (principal); Z68.41 Body mass index [BMI] 40.0-44.9, adult; N39.0 Urinary tract infection, site not specified; B96.89 Other specified bacterial agents as the cause of diseases classified elsewhere; E66.9 Obesity, unspecified; F17.210 Nicotine dependence, cigarettes, uncomplicated; J45.909 Unspecified asthma, uncomplicated; L29.9 Pruritus, unspecified; Z87.442 Personal history of urinary calculi
CPT/HCPCS: 74181; 76377; 76705; 80048; 80053; 80074; 80076; 81001; 82948; 83690; 83970; 84703; 85025; 85610; 85730; 87077; 87086; 87186; 88304; 93005; 96374; 96375; C9113; J0690; J0696; J1130; J1200; J1885; J1956; J2250; J2270; J2370; J2405; J2710; J3010; J7030; J7120